=== PATIENT | female | born 1950 | race Caucasian/White ===

== ENCOUNTER 2018-12-28 15:42 | Emergency (ER) | payer MEDICARE ==
[~2018-12-28] VITALS: Ht 149.9 cm; Wt 71.7 kg
[2018-12-28] MEDS ORDERED: predniSONE 10 MG TABLET PO ONE (16:30)
--- NOTE | 2018-12-28 16:34 | PHYS DOC ---
Past Medical History Past Medical History: Anxiety, GERD, Hypothyroid Past Surgical History: Lumbar Laminectomy Smoking: Cigarettes Alcohol Use: None Drug Use: None Adult General Chief Complaint Chief Complaint: NEURO SYMPTOMS/DEFICITS HPI HPI 68 year old female presents to ER via POV for complaints of right lower extremity swelling and numbness. Patient states 4 days ago she had increased right knee pain, swelling, and numbness. Patient reports in 2004 she had lumbar surgery with a cadaver vertebrae and cage placed. She reports since that surgery she has had numbness to her right side abdomen and down her right lower extremity with no acute changes. Patient states she was more active 2 days prior to increase symptoms she denies any falls or injury. Patient states she has had right knee pain with swelling and her right foot feels more heavier than usual. Pt reports she is a daily smoker. She denies hormonal therapy. She denies any recent travel or past history blood clots or clotting disorders. Review of Systems Review of Systems Constitutional: Denies fever or chills [] Eyes: Denies change in visual acuity, redness, or eye pain [] HENT: Denies nasal congestion or sore throat [] Respiratory: Denies cough or shortness of breath [] Cardiovascular: No additional information not addressed in HPI [] GI: Denies abdominal pain, nausea, vomiting, bloody stools or diarrhea [] : Denies dysuria or hematuria [] Musculoskeletal: Denies back pain. Integument: Denies rash or skin lesions [] Neurologic: Denies headache, focal weakness or sensory changes [] Endocrine: Denies polyuria or polydipsia [] All other systems were reviewed and found to be within normal limits, except as documented in this note. Current Medications Current Medications Current Medications Medications (Trade) Dose Ordered [facility] Start Time Stop Time Status Last Admin Dose Admin Prednisone (Prednisone) 50 mg 1X ONCE 12/28/18 16:30 12/28/18 16:39 DC 12/28/18 16:54 50 MG Allergies Allergies Allergies Coded Allergies Type Severity Reaction Last Updated Verified No Known Drug Allergies 12/28/18 No Physical Exam Physical Exam Constitutional: Well developed, well nourished, no acute distress, non-toxic appearance. [] HENT: Normocephalic, atraumatic, bilateral external ears normal, oropharynx moist, no oral exudates, nose normal. [] Eyes: PERRLA, EOMI, conjunctiva normal, no discharge. [] Neck: Normal range of motion, no tenderness, supple, no stridor. [] Cardiovascular:Heart rate regular rhythm, no murmur [] Lungs & Thorax: Bilateral breath sounds clear to auscultation [] Abdomen: Bowel sounds normal, soft, no tenderness, no masses, no pulsatile masses. [] Skin: Warm, dry, no erythema, no rash. [] Back: No tenderness, no CVA tenderness. [] Extremities: No tenderness, no cyanosis, no clubbing, ROM intact, no edema. [] Neurologic: Alert and oriented X 3, normal motor function, normal sensory function, no focal deficits noted. [] Psychologic: Affect normal, judgement normal, mood normal. [] EKG EKG [] Radiology/Procedures Radiology/Procedures PROCEDURE: KNEE RIGHT 3V KNEE RIGHT 3V History: Right knee pain. FINDINGS: No evidence of acute fracture. No aggressive bone destruction. Enthesophytes at the superior patella. Mild degenerative spurring. There are small ossicles posterior to the knee, possibly loose bodies. IMPRESSION: 1. No evidence of acute fracture or dislocation. 2. Degenerative changes, possible posterior loose bodies. Electronically signed by: Rio Hyman MD (12/28/2018 5:13 PM) [id number] DICTATED and SIGNED BY: RIO HYMAN MD DATE: 12/28/18 1714 PROCEDURE: VENOUS LOWER EXTREMITY RIGHT Right lower extremity venous doppler ultrasound History: Right leg pain and swelling Comparison: None Findings: Multiple grayscale, color, and duplex spectral analysis sonographic images were acquired of the right lower extremity veins to evaluate for the presence of DVT. There is normal phasicity. Normal compression, color-flow, and augmentation is demonstrated from the right common femoral to the popliteal veins. There is normal color flow of the proximal greater saphenous and profunda femoris veins. There is normal color flow of segments of the calf veins. Impression: 1. There is no evidence of deep venous thrombosis from the right common femoral to the popliteal veins. Electronically signed by: Tamie Beltran MD (12/28/2018 4:54 PM) [id number] DICTATED and SIGNED BY: TAMIE BELTRAN MD DATE: 12/28/18 0354 Course & Med Decision Making Course & Med Decision Making Pertinent Imaging studies reviewed. (See chart for details) 1750: Patient was evaluated in the ER for complaints of right knee swelling and rt leg pain/heaviness. Pt provided with dose of prednisone as she had taken [place] at home. Ultrasound was negative for DVT and x-ray negative for acute findings. Discussed results with patient and her daughter. Discussed degenera tive changes and need for follow-up with orthopedics. Will provide Dr. Rolle's information on discharge paperwork. Patient remains PMS intact in bilateral lower extremities. Patient has denied any incontinence of bowel or bladder. Jian wrap was applied to right knee by this provider and patient was ambulatory at bedside with steady unassisted gait. Patient has prescribed hydrocodone at home will provide prescription for prednisone and patient advised on NSAIDs with sparing use. Dragon Disclaimer Dragon Disclaimer This electronic medical record was generated, in whole or in part, using a voice recognition dictation system. Departure Departure Impression: Primary Impression: Knee pain, right Additional Impression: Pain and swelling of right lower leg Disposition: HOME, SELF-CARE Condition: STABLE Referrals: UNKNOWN PCP NAME (PCP) VIC ROLLE MD Patient Instructions: Edema, [id number], Knee Pain, Knee Wraps (Elastic Bandage) and RICE Additional Instructions: Continue your prescribed pain medication as directed. Tylenol and/or ibuprofen as needed for pain as directed on container. Use NSAIDs sparingly while on the prednisone prescription. Follow-up with an orthopedic doctor for reevaluation and further care and/or your primary care physician. Scripts Prednisone (PREDNISONE) 20 Mg Tablet 40 MG PO DAILY, #8 TAB 0 Refills Start 12/29/18 Prov: GERRY HWANG APRN 12/28/18 Problem Qualifiers GERRY HWANG APRN Dec 28, 2018 16:34
--- NOTE | 2018-12-28 16:57 | RAD ---
Right lower extremity venous doppler ultrasound History: Right leg pain and swelling Comparison: None Findings: Multiple grayscale, color, and duplex spectral analysis sonographic images were acquired of the right lower extremity veins to evaluate for the presence of DVT. There is normal phasicity. Normal compression, color-flow, and augmentation is demonstrated from the right common femoral to the popliteal veins. There is normal color flow of the proximal greater saphenous and profunda femoris veins. There is normal color flow of segments of the calf veins. Impression: 1. There is no evidence of deep venous thrombosis from the right common femoral to the popliteal veins. Electronically signed by: Ammon Lewis MD (12/28/2018 4:54 PM) [id number]
--- NOTE | 2018-12-28 17:16 | RAD ---
KNEE RIGHT 3V History: Right knee pain. FINDINGS: No evidence of acute fracture. No aggressive bone destruction. Enthesophytes at the superior patella. Mild degenerative spurring. There are small ossicles posterior to the knee, possibly loose bodies. IMPRESSION: 1. No evidence of acute fracture or dislocation. 2. Degenerative changes, possible posterior loose bodies. Electronically signed by: Rio Hyman MD (12/28/2018 5:13 PM) [id number]
[2018-12-28] MEDS ORDERED: PRED20TA PO (18:12)
[2018-12-28 18:50] VITALS: BP 119/70
== END 2018-12-28 19:00 | disposition home or self-care (01) ==
LOC: ER 15:42
DX: M79.89 Other specified soft tissue disorders (principal); M25.561 Pain in right knee; M79.661 Pain in right lower leg; R20.0 Anesthesia of skin; K21.9 Gastro-esophageal reflux disease without esophagitis; E03.9 Hypothyroidism, unspecified; F41.9 Anxiety disorder, unspecified; F17.210 Nicotine dependence, cigarettes, uncomplicated
CPT/HCPCS: 73562; 93971; 99284; J7512